=== PATIENT | male | born 1955 | race Caucasian/White ===

== ENCOUNTER 2021-03-22 09:21 | Day surgery (SDC) | payer BC, MEDICARE ==
[2021-03-21 09:30] VITALS: BMI 29.5
[~2021-03-22 09:21] MED LIST: LACTATED RINGERS 1,000 ML IV SCH; LIDOCAINE 1% (10MG/ML) FOR IV START INTRADERMA PRN
[2021-03-22 10:01] VITALS: TEMP 97.2
--- NOTE | 2021-03-22 11:04 | P.GSHP ---
History of Present Illness H&P Date: 03/22/21 Chief Complaint: Screening colonoscopy This is a 65-year-old male presents today for screening colonoscopy. Patient denies any significant GI complaints. Past Medical History Past Medical History: Rheumatoid Arthritis (RA) History of Any Multi-Drug Resistant Organisms: None Reported Past Surgical History: Hernia Repair Additional Past Surgical History / Comment(s): Trigger finger release, hiatal hernia repair. Past Anesthesia/Blood Transfusion Reactions: No Reported Reaction Past Psychological History: No Psychological Hx Reported Smoking Status: Never smoker Past Alcohol Use History: Occasional Past Drug Use History: None Reported - Past Family History Brother(s) Family Medical History: Cancer Sister(s) Family Medical History: Cancer Medications and Allergies Home Medications Medication Instructions Recorded Confirmed Type Adalimumab [Humira Pen] 40 mg SQ [id number] 03/21/21 03/21/21 History metHOTREXate sodium [Methotrexate] 7 tab PO WE 03/21/21 03/21/21 History Allergies Allergy/AdvReac Type Severity Reaction Status Date / Time No Known Allergies Allergy Verified 03/21/21 09:31 Surgical - Exam Vital Signs Temp Pulse Resp BP Pulse Ox 97.2 F L 73 18 147/91 96 03/22/21 09:59 03/22/21 09:59 03/22/21 09:59 03/22/21 09:59 03/22/21 09:59 - General well developed, well nourished, no distress - Eyes PERRL - ENT normal pinna - Neck no masses - Respiratory normal expansion - Cardiovascular Rhythm: regular - Abdomen Abdomen: soft, non tender Assessment and Plan Assessment: We'll perform screening colonoscopy
[2021-03-22] MEDS ORDERED: GLYCOPYRROLATE 0.2 MG/ML 2 ML VIAL ONE (11:07)
[2021-03-22] MEDS ORDERED: PROPOFOL 10 MG/ML 20 ML VIAL IV ONE (11:07)
[2021-03-22] MEDS ORDERED: ATROPINE SULFATE 0.4 MG/ML 1 ML VIAL ONE (11:07)
--- NOTE | 2021-03-22 11:25 | P.OP ---
Date of Procedure: 03/22/21 Preoperative Diagnosis: Screening colonoscopy Postoperative Diagnosis: Normal colon Procedure(s) Performed: Colonoscopy Anesthesia: MAC Surgeon: Pasha Oscar Pathology: none sent Condition: stable Disposition: PACU Description of Procedure: N PROCEDURE: The patient was placed on the endoscopy table in the lateral position. Digital rectal examination was performed which revealed no abnormalities. The prostate was symmetrical without nodules. Flexible colonoscope was then placed in the patient's anus and passed throughout the entire colon. The ileocecal valve was visualized. The cecum, ascending, transverse, descending and sigmoid colon were normal. The rectum was normal as well. There were no masses, polyps or diverticula noted in the entire colon. SUMMARY OF FINDINGS: Normal colonoscopy.
[2021-03-22 11:59] VITALS: BP 112/72; PULSE 87; RESP 18
== END 2021-03-22 12:14 | disposition home or self-care (01) ==
LOC: ORWHC2ENDO 09:21
PROVIDERS: ATTEND Surgery
DX: Z12.11 Encounter for screening for malignant neoplasm of colon (principal); M06.9 Rheumatoid arthritis, unspecified; Z98.890 Other specified postprocedural states; Z80.9 Family history of malignant neoplasm, unspecified; Z79.818 Long term (current) use of other agents affecting estrogen receptors and estrogen levels; Z79.899 Other long term (current) drug therapy; L40.50 Arthropathic psoriasis, unspecified
CPT/HCPCS: J0461; J2704; G0121; 45378

== ENCOUNTER 2021-12-24 18:52 | Emergency (ER) | payer MEDICARE ==
[2021-12-24 19:04] VITALS: TEMP 97.6
[2021-12-24] MEDS ORDERED: ORPHENADRINE 30 MG/ML 2 ML VIAL IM STA (23:36)
[2021-12-24] MEDS ORDERED: HYDROmorphone 1 MG/ML 1 ML SYRINGE IM STA (23:36)
[2021-12-24] MEDS ORDERED: KETOROLAC 15 MG/ML 1 ML VIAL IM STA (23:36)
[2021-12-24] MEDS ORDERED: ACET/COD 300 MG/30 MG STARTER PACK 6 TAB BTL PO STA (23:37)
[2021-12-24 23:53] VITALS: BP 102/70; PULSE 91; RESP 18
--- NOTE | 2021-12-25 00:37 | ED ---
Back Pain HPI - General Chief Complaint: Back Pain/Injury Stated Complaint: back pain Time Seen by Provider: 12/24/21 23:35 Source: patient, RN notes reviewed Limitations: no limitations - History of Present Illness Initial Comments: this is a pleasant 66-year-old male with a history of rheumatoid arthritis. Patient presents to the emergency department today complaining of low back pain which started last week. Patient states pain in his low back is worse today. It does intermittently radiate into the bilateral hip area. However not down the leg. patient has no problems with bowel movements or urination. No saddle anesthesia. Pain is exacerbated by movement, alleviated by rest, patient using muscle relaxers, Medrol Dosepak, and acetaminophen. Patient is also on methotrexate and Humira for rheumatoid arthritis. No headache, no fever or chills, no changes in vision or hearing, no sore throat or difficulty with speech, no neck pain, no chest pain or shortness of breath, no abdominal pain, no nausea or vomiting, no changes in urination or bowel movements, no numbness or tingling, no extremity pain, no skin rashes or lesions. Past medical, surgical, social, and family history reviewed. MD Complaint: back pain - Related Data Home Medications Medication Instructions Recorded Confirmed Adalimumab [Humira Pen] 40 mg SQ [id number] 03/21/21 03/21/21 metHOTREXate sodium [Methotrexate] 7 tab PO WE 03/21/21 03/21/21 Previous Rx's Medication Instructions Recorded Docusate [Colace] 100 mg PO DAILY #30 capsule 12/25/21 HYDROcodone/APAP 5-325MG [[place] 1 tab PO Q4HR PRN 3 Days #18 tab 12/25/21 5-325] Allergies Allergy/AdvReac Type Severity Reaction Status Date / Time No Known Allergies Allergy Verified 12/24/21 19:03 Review of Systems ROS Statement: Those systems with pertinent positive or pertinent negative responses have been documented in the HPI. ROS Other: All systems not noted in ROS Statement are negative. Past Medical History Past Medical History: Rheumatoid Arthritis (RA) Additional Past Medical History / Comment(s): Back pain, History of Any Multi-Drug Resistant Organisms: None Reported Past Surgical History: Hernia Repair Additional Past Surgical History / Comment(s): Trigger finger release, hiatal hernia repair. Past Anesthesia/Blood Transfusion Reactions: No Reported Reaction Past Psychological History: No Psychological Hx Reported Smoking Status: Never smoker Past Alcohol Use History: Occasional Past Drug Use History: None Reported - Past Family History Brother(s) Family Medical History: Cancer Sister(s) Family Medical History: Cancer General Exam - General Exam Comments Initial Comments: Patient does not appear to be ill or toxic. Cranial nerves II through XII grossly intact. Vital signs are reviewed. Patient noted to be hypertensive. Limitations: no limitations General appearance: in distress Head exam: Present: atraumatic, normocephalic, normal inspection Eye exam: Present: normal appearance, PERRL, EOMI. Absent: scleral icterus, conjunctival injection, periorbital swelling ENT exam: Present: normal exam, mucous membranes moist Neck exam: Present: normal inspection. Absent: tenderness, meningismus, lymphadenopathy Respiratory exam: Present: normal lung sounds bilaterally. Absent: respiratory distress, wheezes, rales, rhonchi, stridor Cardiovascular Exam: Present: regular rate, normal rhythm, normal heart sounds. Absent: systolic murmur, diastolic murmur, rubs, gallop, clicks GI/Abdominal exam: Present: soft, normal bowel sounds. Absent: distended, tenderness, guarding, rebound, rigid Extremities exam: Present: normal inspection, full ROM, normal capillary refill. Absent: tenderness, pedal edema, joint swelling, calf tenderness Back exam: Present: normal inspection Neurological exam: Present: alert, oriented X3, CN II-XII intact Psychiatric exam: Present: normal affect, normal mood Skin exam: Present: warm, dry, intact, normal color. Absent: rash Course Vital Signs 12/24/21 12/24/21 19:01 23:53 Temperature 97.6 F Pulse Rate 82 91 Respiratory 20 18 Rate Blood Pressure 186/113 102/70 O2 Sat by Pulse 98 97 Oximetry Medical Decision Making - Medical Decision Making -There are no red flags for concerning back pathology. Specifically: -No history of cancer, this is not a mass effect, MRI not indicated. -No anticoagulation, this is not a bleed. -No fevers, no IVDU, this is not an infectious process. -No trauma, no bony pain, x-rays are not indicated. -With a normal neuro exam, and no urinary or bowel retention or incontinence, there is no clinical sign of motor defect or cauda equina - MRI is not indicated at this point. -No pulsating abdominal mass or risk factors for AAA. -Pain is relieved with rest, which is also less concerning. -I do not believe that x-rays or emergent MRI is indicated at this time. -We will treat symptomatically and discharge home with follow up instructions. -Stretching/strengthening exercise given to patient and they will be referred to physical therapy -Patient is instructed to use [id number] analgesics as directed on packaging for pain. Patient actually had outpatient x-rays done of his back this morning. Patient has a manager investment banking that he follows closely with. Patient on methotrexate and currently is on a Medrol Dosepak. Patient also on Humira. The case was discussed in detail with ED attending physician. Presentation, findings, treatment plan discussed in detail. Patient was told to return to the ER for any signs or symptoms worsen. Told to return immediately if any other problems arise. All questions answered. Treatment plan discussed. Patient in agreement Every effort has been made to ensure accuracy of this dictation. However, due to the limitations of electronic medical records and dictation devices, errors in charting still occur. The case was discussed in detail with ED attending physician. Presentation, findings, treatment plan discussed in detail. Supervising physician Dr. Shea Disposition Clinical Impression: Acute mechanical low back pain, duration < 6 weeks, Acute lumbar myofascial strain, Hx of rheumatoid arthritis Disposition: HOME SELF-CARE Condition: Stable Instructions (If sedation given, give patient instructions): Acute Low Back Pain (ED) Additional Instructions: Follow-up with your regular physician as directed. Return to the ER immediately if any symptoms worsen, new symptoms arise, or any other problems develop. Make an appointment with your regular physician as well as your manager investment banking. Do not take the acetaminophen/hydrocodone with the acetaminophen/codeine. Continue the Medrol Dosepak, you can continue the muscle relaxer. Moist heat 20 minutes on and off low back 4 times daily. Light walking Is patient prescribed a controlled substance at d/c from ED?: No Referrals: Kolton Espino DO [Primary Care Provider] - 1-2 days Time of Disposition: 00:49
== END 2021-12-25 01:09 | disposition home or self-care (01) ==
LOC: EC 18:52
DX: S39.012A Strain of muscle, fascia and tendon of lower back, initial encounter (principal); M06.9 Rheumatoid arthritis, unspecified; Z79.811 Long term (current) use of aromatase inhibitors; X58.XXXA Exposure to other specified factors, initial encounter
CPT/HCPCS: 99283 ×2; J2360; J1170; J1885

== ENCOUNTER → 2021-12-24 | Outpatient (CLI) | payer MEDICARE ==
--- NOTE | 2021-12-24 10:53 | XR ---
MR spine HISTORY: Pain, strain 3 views of the lumbar spine, no comparisons There is multilevel spondylosis. Slight spinal curvature is present. There is loss of disc and verteb ral levels. Sclerosis is present posterior elements. Lumbar vertebral bodies show preserved height an d bone mineralization. Possible vacuum phenomenon present at L1-2. IMPRESSION: Degenerative disease and facet arthropathy.
== END | disposition home or self-care (01) ==
LOC: RADXRMAIN 10:13
PROVIDERS: ATTEND Nurse Practitioner Family
DX: M47.896 Other spondylosis, lumbar region (principal)
CPT/HCPCS: 72100

== ENCOUNTER → 2021-12-25 | Outpatient (CLI) | payer MEDICARE ==
--- NOTE | 2021-12-25 19:35 | CT ---
EXAMINATION TYPE: CT lumbar spine w con CT DLP: 1001.7 mGycm, Automated exposure control for dose reduction was used. DATE OF EXAM: 12/25/2021 6:52 PM COMPARISON: None CLINICAL INDICATION:Male, 66 years old with history of [id number] RADICULOPATHY, LUMBAR REGION; Low back p ain, no injury TECHNIQUE: Multiple axial images were obtained from the midportion of T11 through the sacroiliac nghia nts. Soft tissue and bone windows in coronal and sagittal planes were obtained and reviewed. Attempted intravenous injection resulted in extravasation. FINDINGS: Alignment: There are 5 lumbar type vertebral bodies within with straightening of the alignment. Bone: Multilevel disc degeneration changes are seen throughout the spine. There is multilevel facet j oint arthropathy and disc space narrowing. Findings are most proximal at L1-L2. Discs: T12-L1: Disc bulge with facet joint arthropathy results in mild spinal canal stenosis. There is mild bilateral neural foraminal stenosis. L1-L2: Disc bulge with osteophytes and facet joint arthropathy results in severe spinal canal stenosi s. There is moderate to severe bilateral neural foraminal stenosis. L2-L3: Disc bulge with osteophytes and facet joint arthropathy results in moderate to severe spinal c anal stenosis. There is moderate bilateral neural foraminal stenosis. L3-L4: Large disc protrusion left centrally is suspected at this level with severe spinal canal steno sis. There is mild bilateral neural foraminal stenosis. L4-L5: Disc bulge with facet joint arthropathy with moderate to severe spinal canal stenosis. Modera te bilateral neural foraminal stenosis. L5-S1: No spinal canal or neural foraminal stenosis is identified. IMPRESSION: 1. L3-L4 disc protrusion suspected with severe spinal canal stenosis. Further evaluation with MRI is recommended. 2. Multilevel disc degeneration changes with severe L1-L2 and moderate to severe L2-L3 spinal canal s tenosis. Additional information as described above.
== END | disposition home or self-care (01) ==
LOC: RADCTMAIN 16:58
PROVIDERS: ATTEND Internal Medicine Rheumatology
DX: M48.061 Spinal stenosis, lumbar region without neurogenic claudication (principal); M51.16 Intervertebral disc disorders with radiculopathy, lumbar region
CPT/HCPCS: 82565; 84520; 72132; 36415; Q9967; 72131

== ENCOUNTER → 2022-07-30 | Outpatient (CLI) | payer MEDICARE ==
--- NOTE | 2022-07-30 08:54 | US ---
EXAMINATION TYPE: US venous doppler duplex LE RT DATE OF EXAM: 07/30/2022 8:23 AM COMPARISON: NONE CLINICAL INDICATION: Male, 66 years old with history of I26.0 M79.661; History of right leg DVT 2021, patient on blood thinners SIDE PERFORMED: Right TECHNIQUE: The lower extremity deep venous system is examined utilizing real time linear array sonog jonathon with graded compression, doppler sonography and color-flow sonography. VESSELS IMAGED: Common Femoral Vein Deep Femoral Vein Greater Saphenous Vein * Femoral Vein Popliteal Vein Small Saphenous Vein * Proximal Calf Veins (* superficial vessels) Right Leg: Positive for DVT distal femoral vein through proximal calf veins IMPRESSION: DVT as noted above.
[2022-07-30 09:17] LABS: African American GFR (CKD) >90 (>60 ml/min/1.73 sqM); Blood Urea Nitrogen 17 mg/dL (9-20); Non-African American GFR(CKD) 83 (>60 ml/min/1.73 sqM)
--- NOTE | 2022-07-30 11:25 | CT ---
EXAMINATION TYPE: CT angio chest DATE OF EXAM: 07/30/2022 COMPARISON: 06/06/2012 HISTORY: 66-year-old male M79.661, PE TECHNIQUE: Contiguous axial scanning of the chest performed with IV Contrast, patient injected with 1 00 mL of Isovue 370. Coronal/sagittal MIP reconstructions performed. CT DLP: 365.5 mGycm Automated exposure control for dose reduction was used. FINDINGS: Heart normal size without pericardial effusion. No flattening of the interventricular septum reflux o f contrast into the hepatic veins. Portal and ectasia aortic root at 3.6 cm. Bovine configuration to the aortic arch. Some prominent right hilar lymph nodes measuring up to 1.2 cm. Unchanged from prior. Otherwise, no th oracic lymphadenopathy by CT size criteria. Satisfactory opacification of the pulmonary artery system without evidence for pulmonary embolus. Focal subpleural opacity measuring 2.9 cm posterolateral right lower lobe. There may be comet tail si gn. Some additional stranding areas of atelectasis or scarring in the lower lungs. Otherwise, no consolidation or pleural effusion. Some surgical clips in the GE junction. If prior hiatal hernia repair, there may be a recurrence of a tiny hiatal hernia. Bones: Mild degenerative disc disease throughout the thoracic spine. IMPRESSION: 1. No evidence for pulmonary embolus. 2. New 2.9 cm subpleural opacity posterolateral right lower lobe. Given apparent comet tail sign, thi s could represent a region of postinflammatory/postinfectious rounded atelectasis. Recommend three-mo nth follow-up CT to reassess and exclude neoplasm. 3. Query prior hiatal hernia repair surgery. There may be recurrence of a tiny hiatal hernia. Correla te with patient's symptoms.
== END | disposition home or self-care (01) ==
LOC: RADUSWWP 07:52
PROVIDERS: ATTEND Family Medicine
DX: I82.411 Acute embolism and thrombosis of right femoral vein (principal); R91.8 Other nonspecific abnormal finding of lung field
CPT/HCPCS: 82565; 84520; 93971; 71275; Q9967

== ENCOUNTER → 2022-12-23 | Outpatient (CLI) | payer MEDICARE ==
--- NOTE | 2023-01-01 07:35 | SLS ---
SLEEP STUDY This is a home sleep study. HISTORY OF PRESENT ILLNESS: This is a 67-year-old male patient who was evaluated in the office for secondary polycythemia. The patient was already seen by Hematology/Oncology and his workup was negative. The patient was referred to me for sleep apnea evaluation to rule out the possibility of underlying sleep breathing disorder contributing to the patient's chronic polycythemia. He is known to have rheumatoid arthritis and previous history of DVT and pulmonary embolism and he has been maintained on anticoagulation. PERTINENT PHYSICAL FINDINGS: Height is 5 feet 9 inches, weight is 194, BMI 28.6. TECHNICAL DESCRIPTION: This is a type 3 home sleep study that was conducted using the [employer] system. The total recording duration was 8 hours and 44 minutes. The study started at 9:29 p.m., ended at 6:14 a.m. This was an adequate study as the patient had a total of 6 hours and 39 minutes of flow monitoring in 8 hours and 34 minutes with oxygen saturation monitoring. RESULTS: Respiratory count showed a total of 5 obstructive apneas and 42 obstructive hypopneas. The resulting AHI was 7.1. OXYGENATION ANALYSIS: The average pulse ox was 92%, minimum pulse ox was 85%. This patient spent approximately 15 minutes of sleep time at a pulse ox of 88% and below. CARDIAC SUMMARY: Average heart rate was 64, minimum heart rate 52, maximum heart rate was 91. IMPRESSION: 1. Mild obstructive sleep apnea with an AHI of 7.1. 2. Minimal nocturnal oxygen desaturation with the lowest pulse ox of 85% as the patient spent 15 minutes of sleep time at a pulse ox of 88% and below. 3. Polycythemia, likely secondary in nature under investigation. 4. History of DVT/pulmonary embolism, maintained on anticoagulation with Eliquis. 5. Rheumatoid arthritis. PLAN: This is a case of mild obstructive sleep apnea. I highly doubt that the patient's secondary polycythemia is related to underlying sleep breathing disorder as the patient does not demonstrate significant nocturnal oxygen desaturations overnight. The patient will be asked to sleep on his side and keep the head of the bed elevated. He will be asked to maintain good sleep hygiene measures and regular sleep schedule. I do not see the immediate need for CPAP therapy in this patient unless his condition changes. The patient denies having any significant hypersomnia or sleepiness. His sleep is not fragmented and his [place] score is only at 2. Based on that, I decided not to offer CPAP therapy at this point, and the patient can see me back in a year's time in followup and consider CPAP therapy should there be any change in his overall condition. DANNY / LETYN: [id number] /
== END ==
LOC: 3 N SLEEP 13:05
PROVIDERS: ATTEND Internal Medicine Critical Care Medicine
DX: G47.30 Sleep apnea, unspecified (principal); D75.1 Secondary polycythemia; G47.36 Sleep related hypoventilation in conditions classified elsewhere; M06.9 Rheumatoid arthritis, unspecified; Z86.718 Personal history of other venous thrombosis and embolism; Z88.8 Allergy status to other drugs, medicaments and biological substances; Z79.01 Long term (current) use of anticoagulants

== ENCOUNTER → 2023-11-07 | Outpatient (CLI) | payer MEDICARE ==
--- NOTE | 2023-11-07 10:07 | XR ---
EXAMINATION TYPE: XR tibia fibula LT DATE OF EXAM: 11/07/2023 9:50 AM CLINICAL INDICATION:Male, 67 years old with history of M79.662 Fall off roof Left Tib Fib pain; [facility] COMPARISON: None TECHNIQUE: XR tibia fibula LT; tibia/fibula was examined in AP and lateral projections. FINDINGS: No evidence of any acute osseous pathology, joint dislocation, or soft tissue swelling is n oted. Fabella is present. Mild degeneration changes of the visualized joints with joint space narrowing and osteophyte formation. IMPRESSION: No evidence of acute fracture.
== END | disposition home or self-care (01) ==
LOC: RADXRMAIN 09:12
PROVIDERS: ATTEND Family Medicine
DX: M79.662 Pain in left lower leg (principal); W13.9XXA Fall from, out of or through building, not otherwise specified, initial encounter

== ENCOUNTER → 2024-04-21 | Outpatient (CLI) | payer MEDICARE ==
--- NOTE | 2024-04-21 11:36 | XR ---
EXAMINATION TYPE: XR ankle complete LT DATE OF EXAM: 04/21/2024 10:27 AM COMPARISON: 11/07/2023 CLINICAL INDICATION: Male, 68 years old with history of S92.152A Left ankle Avulsion; PH[facility], pain TECHNIQUE: XR ankle complete LT; frontal, lateral and oblique projections. FINDINGS: There is no evidence of acute osseous pathology. No evidence of subluxation or dislocation. Kager's fat pad is intact. Mild soft tissue swelling around the ankle. No radiopaque foreign bodies are ident ified. Multifocal degeneration changes throughout the joints of the foot with osteophyte formation an d joint space narrowing. IMPRESSION: 1. No evidence of acute fracture. 2. Subcutaneous swelling around the ankle likely secondary to underlying soft tissue injury. [facility], , 04/21/2024 11:34 AM
== END | disposition home or self-care (01) ==
LOC: RADXRMAIN 10:14
PROVIDERS: ATTEND Family Medicine
DX: S92.152A Displaced avulsion fracture (chip fracture) of left talus, initial encounter for closed fracture (principal)

== ENCOUNTER → 2024-09-28 | Outpatient (CLI) | payer MEDICARE ==
--- NOTE | 2024-09-28 15:59 | XR ---
EXAMINATION TYPE: XR thoracic spine complete DATE OF EXAM: 09/28/2024 3:35 PM COMPARISON: None CLINICAL INDICATION: Male, 68 years old with history of R52 PAIN, UNSPECIFIED; PH[facility], pain TECHNIQUE: 3 views FINDINGS: 12 thoracic vertebral bodies. All pedicles are visualized. Mild degenerative disc disease mid thoraci c spine. Vertebral body heights are preserved and alignment is maintained. IMPRESSION: Mild degenerative disc disease mid thoracic spine. No vertebral compression collapse or malalignment seen. [facility], Workstation: [id number], 09/28/2024 3:57 PM
== END | disposition home or self-care (01) ==
LOC: RADXRMAIN 14:50
PROVIDERS: ATTEND Family Medicine
DX: M51.34 Other intervertebral disc degeneration, thoracic region (principal)
CPT/HCPCS: 72072